=== PATIENT | male | born 1990 | race Caucasian/White ===

== ENCOUNTER 2020-12-15 08:57 | Emergency (ER) | payer SELFPAY ==
[~2020-12-15] VITALS: Ht 177.8 cm; Wt 99.8 kg
[2020-12-15 09:01] VITALS: BP 172/122
--- NOTE | 2020-12-15 09:09 | NUR ---
PT AMBULATED TO BED 5.
[2020-12-15] MEDS ORDERED: NACL 0.9% 1,000 ML IV ONE (09:25)
[2020-12-15] MEDS ORDERED: ONDANSETRON 4 MG/2 ML VIAL IVP ONE (09:25)
--- NOTE | 2020-12-15 09:30 | NUR ---
ophthalmic tech at bedside.
--- NOTE | 2020-12-15 09:44 | NUR ---
Dr. Davis is evaluating the patient at bedside.
--- NOTE | 2020-12-15 09:59 | NUR ---
30 Y/O M BIB SELF FROM HOME, PATIENT PRESENTS TO ED WITH CHEST AND ABD PAIN THAT STARTED 2 WEEKS AGO AFTER STOPPING ALCOHOL AND MARIJUANA USE. PT STATES HE HAS BEEN C/O N&V, POOR APPETITE, WITH DARK RED BLOOD IN EMESIS; SKIN IS PINK/COOL/DRY; AAOX4 WITH EVEN AND STEADY GAIT; LUNGS CLEAR BL; HR EVEN AND REGULAR; PT DENIES ANY FEVER, SOB, SHAKING, RESTLESSNESS OR COUGH AT THIS TIME; PATIENT STATES PAIN OF 8/10 AT THIS TIME; VSS; PATIENT POSITIONED FOR COMFORT; HOB ELEVATED; BEDRAILS UP X2; BED DOWN. ER MD MADE AWARE OF PT STATUS. LAST BM: THURSDAY AND UNABLE TO TOLERATE FLUIDS OR SOLIDS AT THIS TIME. PMH: DENIES NKA
[2020-12-15 10:23] LABS: BASOPHILS % (AUTO) 0.6 % (0.0-2.0); HEMATOCRIT 52.7 % (36-52); HEMOGLOBIN 18.4 g/dL (12.0-18.0); LYMPHOCYTES # (AUTO) 0.7 K/uL (2.0-11.5); MEAN CORPUSCULAR HEMOGLOBIN 30 pg (27-31); MEAN CORPUSCULAR HGB CONC 35 g/dL (33-37); MEAN CORPUSCULAR VOLUME 84.5 fL (80-94); MONOCYTES # (AUTO) 0.7 K/uL (0.8-1.0); MONOCYTES % (AUTO) 9.3 % (1.7-9.3); NEUTROPHILS # (AUTO) 5.9 K/uL (1.8-7.7); NEUTROPHILS % (AUTO) 80.1 % (42.2-75.2); PLATELET COUNT (AUTO) 310 K/uL (140-450); RED BLOOD CELL COUNT(AUTO) 6.24 MIL/uL (4.20-6.10); RED CELL DISTRIBUTION WIDTH 13.5 % (11.6-13.7); WHITE BLOOD COUNT (AUTO) 7.4 K/uL (4.8-10.8)
[2020-12-15 10:32] LABS: ALBUMIN 5.4 g/dL (3.4-5.0); ASPARTATE AMINOTRANSFERASE 131 U/L (15-37); CARBON DIOXIDE 23.9 mmol/L (21-32); CHLORIDE 96 mmol/L (98-107); GFR ARICAN-AMERICAN 114 mL/min (>90); GLUCOSE 147 mg/dL (74-106); LIPASE 175 U/L (73-393); SODIUM SERUM 134 mmol/L (136-145); TOTAL BILIRUBIN 0.5 mg/dL (0.0-1.0); UREA NITROGEN, BLOOD 12 mg/dL (7-18)
[2020-12-15 10:36] LABS: POTASSIUM 2.9 mmol/L (3.5-5.1)
[2020-12-15] MEDS ORDERED: POTASSIUM CHLORIDE 10 MEQ TABER PO ONE (10:40)
[2020-12-15] MEDS ORDERED: ALUMINUM HYD/MAG/SIMETHICONE 30 ML UDC PO ONE (11:35)
[2020-12-15] MEDS ORDERED: ONDA-24 SL (11:40)
[2020-12-15 12:20] VITALS: BP 162/108
== END 2020-12-15 12:20 | disposition home or self-care (01) ==
LOC: MED 08:57
DX: R11.2 Nausea with vomiting, unspecified (principal); R10.13 Epigastric pain; F10.10 Alcohol abuse, uncomplicated; F12.90 Cannabis use, unspecified, uncomplicated; Z79.899 Other long term (current) drug therapy; Y90.0 Blood alcohol level of less than 20 mg/100 ml
CPT/HCPCS: 36415; 71045; 80053; 83690; 85025; 96361; 96374; 99284; G0482; J2405; J7030